=== PATIENT | female | born 1990 | race Caucasian/White ===

== ENCOUNTER 2016-07-31 19:19 | Emergency (ER) | payer BC, OTHER ==
[2016-07-31 19:39] VITALS: BP 137/64
[2016-07-31 20:20] LABS: Urine Bilirubin 1 mg/dl (NEGATIVE); Urine Blood 250 /ul (NEGATIVE); Urine Ketone Negative (NEGATIVE); Urine Nitrite Negative (NEGATIVE); Urine Protein Negative (NEGATIVE); Urine Specific Gravity >=1.030 SP.GR. (1.005-1.010); Urine Urobilinogen Normal (NORMAL)
[2016-07-31 20:28] LABS: Urine Amorphous Sediment TRACE (NONE-FEW); Urine Appearance Clear; Urine Bacteria 1+; Urine Color Yellow; Urine Mucus Many - 3+; Urine WBC 0-5 /hpf (0-5)
--- NOTE | 2016-07-31 20:48 | ERNOTE ---
ER Female HPI Stated Complaint: VAG BLEEDING Presenting Symptoms: vaginal bleeding Time Seen by Provider: 07/31/16 20:38 Immunizations: IMMUNIZATION HX Immunizations Up to Date Yes History of Influenza Vaccine No Hx Pneumococcal Vaccination No Allergies/Adverse Reactions: Allergies No Known Allergies Allergy (Verified 05/13/15 04:29) Home Medications: HOME MEDICATIONS NK [No Home Medication] 07/31/16 [Last Taken Unknown] - History of Present Illness Narrative: had some left pelvic pain last week that resolved spontaneously. Began bleeding today and is concerned that she shouldn't start her period yet. LMP 07/10/16 Timing: Present: constant Quality: Present: mild Sexual [place] History: Present: single partner Associated Symptoms: Present: denies symptoms Review of Systems - Review of Systems Constitutional: Present: no symptoms reported EYE: Present: no symptoms reported ENT: Present: no symptoms reported Respiratory: Present: no symptoms reported Cardiology: Present: no symptoms reported Gastrointestinal/Abdominal: Absent: nausea, vomiting Genitourinary: Present: no symptoms reported Musculoskeletal: Present: no symptoms reported Skin: Present: no symptoms reported Neurological: Present: no symptoms reported Endocrine: Present: no symptoms reported Hematologic/Lymphatic: Present: no symptoms reported Psych: Present: no symptoms reported - Patient's Past Medical History Patient History - Medical: No pertinent hx Patient History - Cardiac/Respiratory: No pertinent hx Patient History - Cancer: No Hx of Cancer Patient History - Surgical Procedures: Appendectomy, Back Surgery, Cholecystectomy, D & C, Ear Tubes, T & A, Other Patient History - Other: None LMP (females 10-50): 3 weeks LMP (Calendar): 07/10/16 - Social History Living Situations: significant other Abuse History: No History of abuse Psych History: Hx of Depression Does anyone smoke in the home?: Yes Smoking Status: Current every day smoker Alcohol Use: rarely Drug Use: none - Immunizations Immunizations Up to Date: Yes Hx Pneumococcal Vaccination: No History of Influenza Vaccine: No Physical Exam - Physical Exam General Appearance: Present: wd/wn, alert, no apparent distress Eye Exam: Normal inspection: bilateral Neck: Present: normal inspection Respiratory: Present: no respiratory distress Gastrointestinal/Abdominal: Present: nontender, nondistended, soft Back Exam: Present: normal inspection, normal range of motion, no CVA tenderness Extremity Exam: Present: normal inspection, normal range of motion Neurological Exam: Present: alert, oriented, normal mood/affect, no motor/ sensory deficits Skin Exam: Present: normal color, warm/dry ED Progress - Results and Orders Patient's Lab Results:: I have reviewed the patient's lab results. Results and Orders: Laboratory Tests 07/31/16 07/31/16 20:10 20:10 Urine Color Yellow Urine Appearance Clear Urine pH 6.0 Ur Specific [place] >=1.030 Urine Protein Negative Urine Glucose (UA) Negative Urine Ketones Negative Urine Blood 250 H Urine Nitrate Negative Urine Bilirubin 1 H Urine Ictotest Negative Urine Urobilinogen Normal Ur Leukocyte Esterase Negative Urine RBC 5-10 H Urine WBC 0-5 Ur Epithelial Cells >25 H Amorphous Sediment Trace Urine Bacteria 1+ H Urine Mucus Many - 3+ H Urine Culture Comments No culture indicated Urine HCG, Qual Negative - Vital Signs Patient's Vital Signs:: I have reviewed the patient's vital signs. Vital Signs: Vital Signs 07/31/16 19:34 Temperature 36.3 C L Pulse Rate 61 Respiratory 16 Rate Blood Pressure 137/64 O2 Sat by Pulse 99 Oximetry - Progress/Reassessment Chief Complaint: Genitourinary Problem Departure Clinical Impression: Menstrual cycle disorder - Departure Disposition: Home self-care Condition: Good Instructions: Dysfunctional Uterine Bleeding Referrals: Mary Beth Martinez MD [Primary Care Provider] -
== END 2016-07-31 20:48 | disposition home or self-care (01) ==
LOC: ER 19:19
DX: N92.5 Other specified irregular menstruation (principal); Z72.0 Tobacco use